=== PATIENT | male | born 1945 | race Caucasian/White ===

== ENCOUNTER 2018-03-08 09:50 | Day surgery (SDC) | payer MEDICARE ==
[2018-03-07 16:33] VITALS: BMI 33.1
--- NOTE | 2018-03-08 13:22 | OP ---
PREOPERATIVE DIAGNOSES: 1. Dysphagia. 2. Albright's esophagus. PROCEDURE IN DETAIL: After informed consent was obtained, the patient was placed in the left lateral decubitus position. Anesthesia was administered per the Anesthesia Department. Forward-viewing end oscope was inserted into the esophagus under direct visualization with ease and passed to the second portion of the duodenum with ease. Second portion of the duodenum was normal. Duodenal bulb was nor mal. The pylorus, antrum, body, fundus, and cardia were normal. The short segment Albright's esophag us was noted. A small hiatal hernia was noted. Stricture was noted at the GE junction and this was dilated with a 54-Chinese Tomlinson dilator. The Albright's was not biopsied because the patient had rec urrent episodes of oxygen desaturation and when he was not desaturated, he was fighting the procedure . ASSESSMENT: 1. Esophageal stricture - status post Tomlinson dilatation. 2. Small hiatal hernia. 3. Short segment Albright's esophagus - unable to biopsy secondary to oxygen desaturation, endoscopic ally unchanged. 4. Otherwise normal esophagogastroduodenoscopy. RECOMMENDATIONS: 1. Resume medication. 2. Resume Eliquis in a.m.
[2018-03-08] MEDS ORDERED: PROPOFOL 200 MG/20 ML VIAL ONE (15:02)
== END 2018-03-08 13:45 | disposition home or self-care (01) ==
LOC: SDC 09:50
PROVIDERS: ATTEND Internal Medicine Gastroenterology
PROC: 0DJ08ZZ Inspection of Upper Intestinal Tract, Via Natural or Artificial Opening Endoscopic (ICD-10-PCS; principal; 2018-03-08)
PROC: 0D758DZ Dilation of Esophagus with Intraluminal Device, Via Natural or Artificial Opening Endoscopic (ICD-10-PCS; 2018-03-08)
DX: K22.2 Esophageal obstruction (principal); K22.70 Barrett's esophagus without dysplasia; K44.9 Diaphragmatic hernia without obstruction or gangrene; Z79.84 Long term (current) use of oral hypoglycemic drugs; Z79.82 Long term (current) use of aspirin; Z79.01 Long term (current) use of anticoagulants; Z79.899 Other long term (current) drug therapy; Z98.890 Other specified postprocedural states
CPT/HCPCS: J2704

== ENCOUNTER 2020-12-05 09:33 | Outpatient (CLI) | payer MEDICARE ==
[2020-12-05 22:14] LABS: SARS-CoV-2 PCR by NAA Not Detected (NotDetected)
== END 2020-12-05 09:34 | disposition home or self-care (01) ==
LOC: LABBT 09:33
PROVIDERS: ATTEND Internal Medicine Pulmonary Disease
DX: Z01.812 Encounter for preprocedural laboratory examination (principal); R91.8 Other nonspecific abnormal finding of lung field; Z20.822 Contact with and (suspected) exposure to COVID-19
CPT/HCPCS: U0003; U0005; 87635

== ENCOUNTER 2020-12-10 07:41 | Day surgery (SDC) | payer MEDICARE ==
[2020-12-08 14:00] VITALS: BMI 32.5
[2020-12-10] MEDS ORDERED: Fentanyl 100 MCG/2 ML VIAL ONE (08:22)
[2020-12-10] MEDS ORDERED: Midazolam HCl 2 mg/2 ml Vial ONE (08:22)
[2020-12-10] MEDS ORDERED: Lidocaine 1% PF 5 ML VIAL ONE (09:10)
[2020-12-10] MEDS ORDERED: Dexamethasone 20 MG/5 ML VIAL ONE (09:10)
[2020-12-10] MEDS ORDERED: Succinylcholine 200 MG/10 ml SYRINGE FS ONE (09:10)
[2020-12-10] MEDS ORDERED: Rocuronium Bromide 10 MG/ML (10ML VIAL) ONE (09:10)
[2020-12-10] MEDS ORDERED: PROPOFOL 200 MG/20 ML VIAL ONE (09:10)
[2020-12-10] MEDS ORDERED: Ondansetron PF 4 MG/2 ML Vial ONE (09:10)
[2020-12-10] MEDS ORDERED: PHENYLEPHRINE-NS 100 MCG/ML 10 ML SYRINGE ONE (09:10)
--- NOTE | 2020-12-10 12:38 | OP ---
DATE OF PROCEDURE: 12/10/2020 INDICATIONS FOR PROCEDURE: A 75-year-old gentleman with a left upper lung mass. PROCEDURE PERFORMED: Bronchoscopy with biopsy, rule out bronchogenic carcinoma. POSTBRONCHOSCOPY DIAGNOSIS: A 75-year-old gentleman with a left upper lung mass. DESCRIPTION OF PROCEDURE: After informed consent, the patient received DuoNeb treatment. He was seen by Anesthesia and intubated with a #8 endotracheal tube. Flexible video Olympus bronchoscope was then passed via the endotracheal tube using adapter. Distal trachea was visualized, which was normal. Shana was sharp. Right lung was visualized initially; right upper, right middle and right lower lobe. No endobronchial obstruction, blood, or pus seen. Left lung was inspected thereafter. Moderate amount of secretion was seen on entering the left mainstem bronchus. This was normal. In the left upper lobe bronchus, the apical posterior segment was completely occluded by an endobronchial friable lesion. The anterior segment was normal. The lingular segment was normal and the rest of the left lower lobe was unremarkable. Thereafter, normal saline was used to lavage the left upper lung brushings and transbronchial biopsies from the abnormal mucosa corresponding to the apical posterior segment were done multiple times. There was bleeding seen, which was controlled with epinephrine, a total of 10 mL of 1:10,000. The patient tolerated the procedure well. Washing was sent for AFB smear and culture, fungal smear and culture, routine Gram stain, and C and S. Biopsies were sent for pathology. Brushings were sent for cytology. Please note, the patient will be extubated by Anesthesia. He will be seen prior to discharge. Results of the biopsy and pathology will be mailed to the patient at a later time. BRIEF DISCHARGE NOTE: The patient tolerated the procedure well. Results will be mailed to the patient in next several days. Job ID: [id number]
[2021-01-12 16:09] LABS: Fungus Culture Final report
[2021-01-12 16:10] LABS: Fungus Culture Final report; Fungus Stain Final report
== END 2020-12-10 12:20 | disposition home or self-care (01) ==
LOC: SDC 07:41
PROVIDERS: ATTEND Internal Medicine Pulmonary Disease
PROC: 0BBG8ZX Excision of Left Upper Lung Lobe, Via Natural or Artificial Opening Endoscopic, Diagnostic (ICD-10-PCS; principal; 2020-12-10)
PROC: 0BDG8ZX Extraction of Left Upper Lung Lobe, Via Natural or Artificial Opening Endoscopic, Diagnostic (ICD-10-PCS; 2020-12-10)
PROC: 0B9G8ZX Drainage of Left Upper Lung Lobe, Via Natural or Artificial Opening Endoscopic, Diagnostic (ICD-10-PCS; 2020-12-10)
DX: C7A.8 Other malignant neuroendocrine tumors (principal); J44.9 Chronic obstructive pulmonary disease, unspecified; F17.210 Nicotine dependence, cigarettes, uncomplicated; I48.91 Unspecified atrial fibrillation; I10 Essential (primary) hypertension; E78.5 Hyperlipidemia, unspecified; K21.9 Gastro-esophageal reflux disease without esophagitis; I25.10 Atherosclerotic heart disease of native coronary artery without angina pectoris; E78.00 Pure hypercholesterolemia, unspecified; E11.9 Type 2 diabetes mellitus without complications; Z79.01 Long term (current) use of anticoagulants; Z79.82 Long term (current) use of aspirin; Z79.84 Long term (current) use of oral hypoglycemic drugs; Z79.899 Other long term (current) drug therapy
CPT/HCPCS: 87070; 87102; 87116; 87205; 87206; 88104; 88112; 88305; 88341; 88342; J1100; J2250; J2405; J2704; J3010; J7620

== ENCOUNTER 2020-12-18 08:16 | Outpatient (CLI) | payer MEDICARE | END 2020-12-18 08:17 | disposition home or self-care (01) | LOC: PET 08:16 | PROVIDERS: ATTEND Internal Medicine Hematology & Oncology | DX: C34.12 Malignant neoplasm of upper lobe, left bronchus or lung (principal) | CPT/HCPCS: 78815; A9552 ==

== ENCOUNTER 2021-02-27 07:31 | Outpatient (CLI) | payer MEDICARE | END 2021-02-27 07:32 | disposition home or self-care (01) | LOC: PET 07:31 | PROVIDERS: ATTEND Internal Medicine Hematology & Oncology | DX: C34.90 Malignant neoplasm of unspecified part of unspecified bronchus or lung (principal); C34.12 Malignant neoplasm of upper lobe, left bronchus or lung | CPT/HCPCS: 78815; A9552 ==

== ENCOUNTER 2021-10-15 07:36 | Outpatient (CLI) | payer MEDICARE | END 2021-10-15 07:37 | disposition home or self-care (01) | LOC: PET 07:36 | PROVIDERS: ATTEND Internal Medicine Hematology & Oncology | DX: C34.12 Malignant neoplasm of upper lobe, left bronchus or lung (principal); J98.4 Other disorders of lung | CPT/HCPCS: 78815; A9552 ==

== ENCOUNTER 2022-10-27 09:30 | Outpatient (CLI) | payer MEDICARE | END 2022-10-27 09:31 | LOC: PET 09:30 | PROVIDERS: ATTEND Internal Medicine Hematology & Oncology | DX: C34.12 Malignant neoplasm of upper lobe, left bronchus or lung (principal); R91.1 Solitary pulmonary nodule; J98.4 Other disorders of lung | CPT/HCPCS: 78815; A9552 ==

== ENCOUNTER 2023-06-09 12:10 | Outpatient (CLI) | payer MEDICARE | END 2023-06-09 12:11 | disposition home or self-care (01) | LOC: RAD 12:10 | PROVIDERS: ATTEND Internal Medicine | DX: R06.00 Dyspnea, unspecified (principal) | CPT/HCPCS: 71046 ==

== ENCOUNTER 2023-09-16 08:45 | Outpatient (CLI) | payer MEDICARE | END 2023-09-16 08:46 | LOC: PET 08:45 | PROVIDERS: ATTEND Internal Medicine Hematology & Oncology | DX: C34.12 Malignant neoplasm of upper lobe, left bronchus or lung (principal) | CPT/HCPCS: 78815; A9552 ==

== ENCOUNTER 2024-04-03 09:31 | Outpatient (CLI) | payer MEDICARE | END 2024-04-03 09:32 | disposition home or self-care (01) | LOC: RAD 09:31 | PROVIDERS: ATTEND Internal Medicine Critical Care Medicine | DX: R06.00 Dyspnea, unspecified (principal); R91.1 Solitary pulmonary nodule | CPT/HCPCS: 71046 ==

== ENCOUNTER 2024-06-01 08:45 | Outpatient (CLI) | payer MEDICARE | END 2024-06-01 08:46 | disposition home or self-care (01) | LOC: PET 08:45 | PROVIDERS: ATTEND Internal Medicine Hematology & Oncology | DX: C34.12 Malignant neoplasm of upper lobe, left bronchus or lung (principal) | CPT/HCPCS: 78815; A9552 ==

== ENCOUNTER 2024-11-22 08:00 | Outpatient (CLI) | payer MEDICARE | END 2024-11-22 08:01 | disposition home or self-care (01) | LOC: PET 08:00 | PROVIDERS: ATTEND Internal Medicine Hematology & Oncology | DX: C34.12 Malignant neoplasm of upper lobe, left bronchus or lung (principal) | CPT/HCPCS: 78815; A9552 ==